=== PATIENT | male | born 1990 ===

== ENCOUNTER 2017-12-12 17:39 | Emergency (ER) | payer MEDICAID, SELFPAY ==
[2017-12-12] MEDS ORDERED: Lidocaine 1% w/Epinephrine 1:100K 20 ML VIAL ONE (18:38)
[2017-12-12] MEDS ORDERED: Bacitracin Zinc 1 Packet ONE (19:00)
== END 2017-12-12 19:03 | disposition home or self-care (01) ==
LOC: ERS 17:39
DX: L02.413 Cutaneous abscess of right upper limb (principal); F31.9 Bipolar disorder, unspecified; Z87.891 Personal history of nicotine dependence
CPT/HCPCS: 10060; 87070; 87077; 87186; 87205; J2001